=== PATIENT | male | born 1980 | race African-American/Black ===

== ENCOUNTER 2019-02-16 13:39 | Day surgery (SDC) | payer OTHER ==
[2019-02-16 13:50] VITALS: BMI 24.3
--- NOTE | 2019-02-16 13:51 | PDOC ---
Rapid Medical Evaluation Time Seen by Provider: 02/16/19 13:46 Medical Evaluation: 02/16/19 13:47 I have briefly examined the patient The patient presents to the ER for RLQ pain. States he had all over pain yesterday and was evaluated at urgent care. He states that urgent care he went to yesterday called him because he had a high WBC. They told him to come to the nearest ED to r/o appendicitis. Hx of smoking marijuana Exam: TTP of the RLQ/flank. NAD Orders: Labs, urine, IV, NPO Pt to proceed to the ED for further evaluation Discharge Disposition - Diagnosis Abdominal pain Qualifiers: Abdominal location: right lower quadrant Qualified Code(s): R10.31 - Right lower quadrant pain - Referrals - Patient Instructions - Post Discharge Activity
[2019-02-16] MEDS ORDERED: morphine CARPU-JECT 4 MG/1 ML DISP.SYRIN IVPUSH ONE (14:49)
[2019-02-16 14:59] LABS: BASO % 0.9 % (0-2.0); EOS % 0.7 % (0-4.5); HEMATOCRIT 46.8 % (35.4-49); HEMOGLOBIN 15.1 GM/dL (11.7-16.9); LYMPH % 23.2 % (8-40); MCH 28.9 pg (25.7-33.7); MCHC 32.3 g/dl (32.0-35.9); MEAN CELL VOLUME 89.4 fl (80-96); MEAN PLT VOLUME 9.4 fl (7.5-11.1); MONO % 9.6 % (3.8-10.2); NEUT % 65.6 % (42.8-82.8); PLATELET COUNT 214 K/MM3 (134-434); RBC 5.23 M/mm3 (4.00-5.60); RDW 12.6 % (11.9-15.9); WHITE BLOOD COUNT 11.3 K/mm3 (4.0-10.0)
[2019-02-16 15:08] LABS: INR 1.23 (0.83-1.09); PROTHROMBIN TIME (PATIENT) 14.6 SEC (9.7-13.0)
[2019-02-16] MEDS ORDERED: morphine SULFATE 4 MG/ML VIAL ONE (15:08)
[2019-02-16 15:28] LABS: ALBUMIN 4.3 g/dl (3.4-5.0); ALK PHOS 94 U/L (45-117); ANION GAP 7 MMOL/L (8-16); BILIRUBIN,TOTAL 0.9 mg/dL (0.2-1); BLOOD UREA NITROGEN 12 mg/dL (7-18); CALCIUM 9.3 mg/dL (8.5-10.1); CHLORIDE 103 mmol/L (98-107); CO2 28 mmol/L (21-32); CREATININE 1.2 mg/dL (0.55-1.3); GLUCOSE,RANDOM 126 mg/dL (74-106); POTASSIUM 3.8 mmol/L (3.5-5.1); SGOT/AST 19 U/L (15-37); SGPT/ALT 33 U/L (13-61); SODIUM 137 mmol/L (136-145); TOT PROT 8.2 g/dl (6.4-8.2)
--- NOTE | 2019-02-16 15:31 | PDOC ---
History of Present Illness - General Chief Complaint: Pain Stated Complaint: ABNORMAL BLOOD WORK Time Seen by Provider: 02/16/19 13:46 History Source: Patient Exam Limitations: No Limitations Past History - Past Medical History Allergies/Adverse Reactions: Allergies Allergy/AdvReac Type Severity Reaction Status Date / Time No Known Allergies Allergy Verified 02/16/19 13:47 Home Medications: Ambulatory Orders NK [No Known Home Medication] 02/16/19 COPD: No - Suicide/Smoking/Psychosocial Hx Smoking History: Never smoked Drug/Substance Use Hx: Yes ([facility]) *Physical Exam - Vital Signs Last Vital Signs Temp Pulse Resp BP Pulse Ox 98.4 F 98 H 18 123/73 98 02/16/19 13:47 02/16/19 13:47 02/16/19 13:47 02/16/19 13:47 02/16/19 13:47 - Physical Exam General Appearance: No: Apparent Distress Respiratory/Chest: positive: Lungs Clear, Normal Breath Sounds. negative: Respiratory Distress Cardiovascular: positive: Regular Rhythm, Regular Rate, S1, S2. negative: Murmur Gastrointestinal/Abdominal: positive: Tender (RLQ), Soft. negative: Distended, Guarding, Rebound Musculoskeletal: negative: CVA Tenderness Integumentary: positive: Normal Color Neurologic: positive: Alert, Normal Mood/Affect ED Treatment Course - LABORATORY CBC & Chemistry Diagram: 02/16/19 14:28 02/16/19 14:28 - ADDITIONAL ORDERS Additional order review: Laboratory Results 02/16/19 14:28 PT with INR 14.60 H INR 1.23 H 02/16/19 14:28 RBC 5.23 MCV 89.4 MCHC 32.3 RDW 12.6 MPV 9.4 Neutrophils % 65.6 Lymphocytes % 23.2 Monocytes % 9.6 Eosinophils % 0.7 Basophils % 0.9 - Medications Given in the ED: ED Medications Discontinued Medications Generic Name Dose Route Start Last Admin Trade Name Freq PRN Reason Stop Dose Admin Morphine Sulfate 4 mg 02/16/19 14:49 02/16/19 15:19 Morphine Injection - IVPUSH 02/16/19 14:50 4 mg ONCE ONE Administration Medical Decision Making - Medical Decision Making 38 y/o M with no sig pmh, no prior surgeries presents with RLQ abd pain x 1 week , worse the past 2 days, along with mild nausea. Went to yesterday to get evaluated and had labwork done, which resulted today showing leukocytosis. Patient was advised to come to ED for possible appendicitis. Denies fever, sob, cp, vomiting, diarrhea, urinary complaints. Smokes marijuana; denies other drug use. Denies smoking. Drinks alcohol socially R/O appendicitis Plan: Labs, pain control, CT A/P, NPO 02/16/19 15:28 CT A/P shows acute appendicitis; no abscess or phlegmon seen Patient given dose of Cefoxitin D/W Dr. Guerra and patient to be admitted under his service 02/16/19 18:40 *DC/Admit/Observation/Transfer Diagnosis at time of Disposition: Appendicitis Qualifiers: Appendicitis type: acute appendicitis Acute appendicitis type: unspecified acute appendicitis type Qualified Code(s): K35.80 - Unspecified acute appendicitis - Discharge Dispostion Condition at time of disposition: Stable Decision to Admit order: Yes - Referrals - Patient Instructions - Post Discharge Activity
[2019-02-16 15:46] LABS: URINE APPEARANCE CLEAR; URINE BILIRUBIN 1+ (NEGATIVE); URINE CASTS 8 /lpf (0-8); URINE COLOR DK YELLOW; URINE GLUCOSE (UA) NEGATIVE (NEGATIVE); URINE KETONE TRACE (NEGATIVE); URINE LEUK ESTERASE TRACE (NEGATIVE); URINE NITRITE POSITIVE (NEGATIVE); URINE PROTEIN 1+ (NEGATIVE); URINE RBC 1 /hpf (0-4); URINE WBC 1 /hpf (0-5)
[2019-02-16] MEDS ORDERED: SODIUM CHLORIDE 1,000 ML IV STA (18:18)
[2019-02-16] MEDS ORDERED: CEFOXITIN SODIUM 2 GM in DEXTROSE 5%-WATER - 100 ML IVPB ONE (18:23)
[2019-02-16] MEDS ORDERED: ONDANSETRON 4 MG/2 ML VIAL IVPUSH PRN (18:41)
[2019-02-16] MEDS ORDERED: morphine SULFATE 4 MG/ML VIAL IVPUSH PRN (18:41)
[2019-02-16] MEDS ORDERED: LACTATED RINGERS SOLUTION 1,000 ML/1,000 ML INFUS.BAG IV SCH (18:45)
[2019-02-16] MEDS ORDERED: LACTATED RINGERS SOLUTION 1,000 ML IV SCH (18:45)
--- NOTE | 2019-02-16 21:55 | HP ---
Admitting History and Physical - Admission Chief Complaint: abdominal pain History of Present Illness: 38 y/o M with no sig pmh, no prior surgeries presents with RLQ abd pain x 1 week , worse the past 2 days, along with mild nausea. Went to yesterday to get evaluated and had labwork done, which resulted today showing leukocytosis. Patient was advised to come to ED for possible appendicitis. Denies fever, sob, cp, vomiting, diarrhea, urinary complaints. Smokes marijuana; denies other drug use. Denies smoking. Drinks alcohol socially, we were called to assess. History Source: Patient, Medical Record Limitations to Obtaining History: No Limitations - Smoking History Smoking history: Never smoked - Alcohol/Substance Use Hx Alcohol Use: Yes History of Substance Use: reports: Marijuana - Social History Usual Living Arrangement: Yes: Alone ADL: Independent History of Recent Travel: No Home Medications - Allergies Allergies/Adverse Reactions: Allergies Allergy/AdvReac Type Severity Reaction Status Date / Time No Known Allergies Allergy Verified 02/16/19 13:47 - Home Medications Home Medications: Ambulatory Orders Amox-Tr/K Cl [Augmentin - 875Mg Tablet] 1 tab PO BID #14 tablet 02/17/19 Oxycodone HCl/Acetaminophen [Percocet 5/325 -] 1 tab PO Q6H #40 tab MDD 5 Review of Systems - Review of Systems Constitutional: denies: Chills, Fever Eyes: denies: Blind Spots, Blurred Vision HENT: denies: Difficult Swallowing, Throat Pain Neck: denies: Decreased ROM, Lumps, Pain on Movement Cardiovascular: denies: Chest Pain, Palpitations Respiratory: denies: Cough, SOB Gastrointestinal: reports: Abdominal Pain, Nausea. denies: Bloating, Constipation, Diarrhea, Vomiting Genitourinary: denies: Discharge, Dysuria Breasts: reports: No Symptoms Reported. denies: Pain Musculoskeletal: denies: Back Pain, Crepitus, Muscle Pain Integumentary: denies: Bruising, Lesions, Lump Neurological: denies: Seizure, Syncope Endocrine: denies: Unexplained Weight Gain, Unexplained Weight Loss Hematology/Lymphatic: denies: Easily Bruised, Excessive Bleeding Psychiatric: denies: Anxiety, Depression Physical Examination Vital Signs: Vital Signs Temperature 97.9 F 02/16/19 19:31 Pulse Rate 67 05/14/19 19:31 Respiratory Rate 18 02/16/19 19:31 Blood Pressure 125/77 02/16/19 19:31 O2 Sat by Pulse Oximetry (%) 98 02/16/19 19:33 Vital Signs Period Temp Pulse Resp BP Sys/Medrano Pulse Ox Last 24 Hr 97.9 F-98.4 F 67-98 18-20 116-138/58-85 98-99 Constitutional: Yes: Well Nourished, No Distress, Calm Eyes: Yes: WNL, Conjunctiva Clear, EOM Intact HENT: Yes: Atraumatic, Normocephalic Neck: Yes: Supple, Trachea Midline Cardiovascular: Yes: Regular Rate and Rhythm, S1, S2 Respiratory: Yes: Regular, CTA Bilaterally Gastrointestinal: Yes: Normal Bowel Sounds, Soft ...Rectal Exam: Yes: Deferred Renal/: No: CVA Tenderness - Left, CVA Tenderness - Right Breast(s): No: Breast Implants, Nipple Inversion Musculoskeletal: No: Muscle Pain, Muscle Weakness Extremities: No: Cool, Cyanosis Edema: No Peripheral Pulses WNL: Yes Peripheral Pulses: Left Radial: 2+, Right Radial: 2+, Left Doralis Pedis: 2+, Right Dorsalis Pedis: 2+, Left Femoral: 2+, Right Femoral: 2+ Integumentary: No: Jaundice, Rash, Skin Tear Neurological: Yes: Alert, Oriented Psychiatric: Yes: Alert, Oriented Labs: CBC, BMP 02/16/19 14:28 02/16/19 14:28 Imaging - Results Cat Scan: Report Reviewed, Image Reviewed (appendicitis) Problem List - Problems (1) Appendicitis Assessment/Plan: 38yo male with appendicitis with localized peritonitis, RLQ tenderness and elevated WBC NPO and IVF hydration IV antibiotics Discussed with patient risks, benefits and alternatives of laparoscopic possible open appendectomy, including but not limited to bleeding, infection, injury to adjacent structures, leak or injury, intraabdominal abscess, incisional hernia, need for further procedures, ; alternatives include antibiotics, delayed or no surgery - risks of this include failure of nonoperative therapy, perforation, sepsis, recurrence, . Patient desires to proceed with operation - will take to OR for above. Informed consent signed for same. Code(s): K37 - UNSPECIFIED APPENDICITIS Qualifiers: Appendicitis type: acute appendicitis Acute appendicitis type: with localized peritonitis Appendicitis perforation presence: without perforation Appendicitis abscess presence: without abscess Qualified Code(s): K35.80 - Unspecified acute appendicitis (2) Abdominal pain in male Code(s): R10.9 - UNSPECIFIED ABDOMINAL PAIN (3) Leukocytosis Code(s): D72.829 - ELEVATED WHITE BLOOD CELL COUNT, UNSPECIFIED Qualifiers: Leukocytosis type: bandemia Qualified Code(s): D72.825 - Bandemia (4) RLQ abdominal tenderness Code(s): R10.813 - RIGHT LOWER QUADRANT ABDOMINAL TENDERNESS Qualifiers: Presence of rebound: present Qualified Code(s): R10.823 - Right lower quadrant rebound abdominal tenderness
[2019-02-17] MEDS ORDERED: CEFOXITIN SODIUM 1 GM in DEXTROSE 5%-WATER - 100 ML IVPB SCH ×2 (02:00→10:00)
[2019-02-17] MEDS: CEFOXITIN SODIUM 1 GM in DEXTROSE 5%-WATER - 100 ML IVPB SCH ×2 (02:09→07:16)
[2019-02-17] MEDS ORDERED: DEXTROSE IVPB SCH (02:15)
[2019-02-17] MEDS ORDERED: CEFOXITIN IVPB SCH (02:15)
[2019-02-17 06:56] LABS: BASO % 0.3 % (0-2.0); HEMATOCRIT 41.3 % (35.4-49); HEMOGLOBIN 13.8 GM/dL (11.7-16.9); LYMPH % 30.2 % (8-40); MCH 29.6 pg (25.7-33.7); MCHC 33.3 g/dl (32.0-35.9); MEAN PLT VOLUME 9.1 fl (7.5-11.1); MONO % 10.9 % (3.8-10.2); NEUT % 56.6 % (42.8-82.8); PLATELET COUNT 202 K/MM3 (134-434); RBC 4.65 M/mm3 (4.00-5.60); RDW 12.4 % (11.9-15.9); WHITE BLOOD COUNT 7.9 K/mm3 (4.0-10.0)
[2019-02-17] MEDS ORDERED: BUPIVACAINE HCL/PF 0.5% (5MG/ML) 10 ML VIAL ONE (08:05)
[2019-02-17] MEDS ORDERED: ROCURONIUM BROMIDE 50 MG/5 ML VIAL ONE ×6 (08:16→08:19)
[2019-02-17] MEDS ORDERED: MIDAZOLAM HCL 2 MG/2 ML SINGLE DOSE VIAL ONE (08:16)
[2019-02-17] MEDS ORDERED: LIDOCAINE HCL/PF 2% SDV 5ML VIAL ONE (08:16)
[2019-02-17] MEDS ORDERED: PROPOFOL 20 ML ONE ×2 (08:16)
[2019-02-17] MEDS ORDERED: ceFAZolin SODIUM 1 GM VIAL ONE (08:25)
[2019-02-17] MEDS ORDERED: ceFAZolin SODIUM 1 GM VIAL IVPB ONE (08:30)
[2019-02-17] MEDS ORDERED: DEXAMETHASONE SOD PHOSPHATE 4 MG/1 ML VIAL ONE (08:41)
[2019-02-17] MEDS ORDERED: GLYCOPYRROLATE 0.2 MG/1 ML VIAL ONE ×2 (08:52→08:53)
[2019-02-17] MEDS ORDERED: NEOSTIGMINE METHYLSULFATE 0.5 MG/ML - 10 ML MDV ONE (08:52)
[2019-02-17] MEDS ORDERED: BUPIVACAINE HCL/PF 0.5% (5MG/ML) 10 ML VIAL IJ ONE (08:57)
[2019-02-17] MEDS: IBUPROFEN 800 MG/8 ML IJ IVPB PRN ×2 (09:00→09:30)
--- NOTE | 2019-02-17 09:18 | OP ---
Operative Note - Note: Operative Date: 02/17/19 Pre-Operative Diagnosis: appendicitis Operation: laparoscopic appendectomy Findings: inflammed appendix, purulent exudate Post-Operative Diagnosis: Same as Pre-op Surgeon: Shahzad Guerra Anesthesiologist/MANAGER ENGINE: Karissa Arriola Anesthesia: General, Local (maricaine 0.5% 10 ml) Estimated Blood Loss (mls): 2 Drains, Volume Out (mls): 50 (UOP) Fluid Volume Replaced (mls): 500 (crystalloid ) Operative Report Dictated: Yes
--- NOTE | 2019-02-17 09:19 | DS ---
Physical Examination Vital Signs: Vital Signs Temperature 98.4 F 02/17/19 06:10 Pulse Rate 70 02/17/19 06:10 Respiratory Rate 20 02/17/19 06:10 Blood Pressure 116/58 L 02/17/19 06:10 O2 Sat by Pulse Oximetry (%) 98 02/17/19 03:00 Vital Signs Period Temp Pulse Resp BP Sys/Medrano Pulse Ox Last 24 Hr 97.9 F-98.4 F 58-98 14-20 110-138/56-85 95-99 Findings/Remarks: stable post operatively. tolrating diet and stable for discharge home. Constitutional: Yes: Well Nourished, No Distress, Calm Eyes: Yes: Conjunctiva Clear, EOM Intact HENT: Yes: Atraumatic, Normocephalic Neck: Yes: Supple, Trachea Midline Cardiovascular: Yes: Regular Rate and Rhythm, S1, S2 Respiratory: Yes: Regular, CTA Bilaterally Gastrointestinal: Yes: Normal Bowel Sounds, Soft ...Rectal Exam: Yes: Deferred Renal/: No: CVA Tenderness - Left, CVA Tenderness - Right Musculoskeletal: No: Muscle Pain, Muscle Weakness Extremities: No: Cool, Cyanosis Edema: No Peripheral Pulses WNL: Yes Peripheral Pulses: Left Radial: 2+, Right Radial: 2+, Left Doralis Pedis: 2+, Right Dorsalis Pedis: 2+, Left Femoral: 2+, Right Femoral: 2+ Integumentary: Yes: Incision. No: Jaundice, Rash Wound/Incision: Yes: Clean/Dry, Well Approximated, Dressing Dry and Intact Neurological: Yes: Alert, Oriented Psychiatric: Yes: Alert, Oriented Labs: CBC, BMP 02/17/19 06:00 02/16/19 14:28 Discharge Summary Reason For Visit: APPENDICITIS Current Active Problems Abdominal pain in male (Acute) Appendicitis (Acute) Leukocytosis (Acute) RLQ abdominal tenderness (Acute) Procedures: Principal: laparoscopic appendectomy Hospital Course: admitted for an emergency ambulatory procedure. Uneventful procedure. stable for discharge home. Condition: Good - Instructions Diet, Activity, Other Instructions: Postoperative instructions: You had a laparoscopic ectomy on 02/17/[address] Shahzad Guerra of [facility]. Activity: Resume your usual activities gradually, but no heavy exertion or lifting more than 10-15 pounds for 1 month. Remove dressings 48 hours after surgery; sticky tapes underneath will fall off by themselves. You may shower daily starting then, just pat the incision areas dry. No bath or swimming until skin incisions have healed. Eat lightly at first, but advance to your usual diet as tolerated. Pain: For pain, you may use and alternate Tylenol (acetaminophen) 1-2 pills and/ or ibuprofen 200 mg (1-3 pills) every 6 hours each as needed; this means that you can take one OR the other at 3-hour intervals. If you are prescribed a Tylenol/narcotic combination for severe pain, use it instead of plain Tylenol as needed and switch back when your pain starts decreasing. Do not take more than 4000mg of acetaminophen in a day. Take medications as prescribed or indicated on the labeling. Follow-up: Call Dr. Guerra' office at [phone] to make your postop appointment (Friday in approximately 2 weeks after surgery). Clinic is held in the [facility] on the first floor of [facility]. Call the office if you have: * increasing pain not responsive to pain medication * fever of 101F or higher * vomiting * unusual or increasing bleeding or drainage from wounds * increasing redness or swelling at wound sites * inability to urinate Also, see your primary medical doctor within 1-2 weeks. Disposition: HOME - Home Medications Comprehensive Discharge Medication List: Ambulatory Orders Amox-Tr/K Cl [Augmentin - 875Mg Tablet] 1 tab PO BID #14 tablet 02/17/19 Oxycodone HCl/Acetaminophen [Percocet 5/325 -] 1 tab PO Q6H #40 tab MDD 5
[2019-02-17] MEDS ORDERED: ONDANSETRON 4 MG/2 ML VIAL IVPUSH PRN (09:44)
[2019-02-17] MEDS ORDERED: morphine SULFATE 4 MG/ML VIAL IVPUSH PRN (09:44)
[2019-02-17] MEDS ORDERED: LACTATED RINGERS SOLUTION 1,000 ML IV SCH (09:44)
[2019-02-17] MEDS ORDERED: CEFOXITIN SODIUM 1 GM in DEXTROSE 5%-WATER 100 ML IVPB SCH (10:00)
[2019-02-17 10:45] VITALS: BP 116/67; PULSE 73; TEMP 98.3
--- NOTE | 2019-02-17 14:50 | OP ---
DATE OF OPERATION: 02/17/2019 PREOPERATIVE DIAGNOSIS: Acute appendicitis with localized peritonitis. POSTOPERATIVE DIAGNOSIS: Acute appendicitis with localized peritonitis. PROCEDURE: Laparoscopic appendectomy. ATTENDING SURGEON: Shahzad Guerra MD. COSMETIC SURGEON: None. ANESTHESIOLOGIST: Karissa Arriola MD. ANESTHESIA TYPE: General with local. Local consisted of 0.5% Marcaine as well as 10 mL. ESTIMATED BLOOD LOSS: 2 mL. SPECIMEN: Appendix. IV FLUID ADMINISTERED: 500 mL. ESTIMATED BLOOD LOSS: 2 mL. DRAINS: 50 mL of urine output. FINDINGS: The patient had an inflamed appendix with purulent exudate which was removed from its base at the cecum. INDICATION: The patient is a 38-year-old male presenting with a history of 4 days of right lower quadrant abdominal pain worsening and persistent associated with some nausea and no vomiting. He had mild leukocytosis and a mild fever. A CAT scan confirmed the presence of acute appendicitis. He was counseled regarding the risks, benefits and alternatives of open versus laparoscopic appendectomy, signed informed consent, and was taken for the procedure. PROCEDURE: The patient was brought to the operating room. He was placed in the supine position on the operating table. The anterior abdominal wall was shaved, prepped and draped in standard surgical fashion over the lower abdomen and below the umbilicus. For planned Socorro entry, the skin was marked along with the port entries in the suprapubic position and the left lower quadrant. After a formal timeout was completed identifying the operative site and procedure, we began first with a Socorro entry into the infraumbilical space. A Jones had been placed preoperatively as well as SCDs. He received intravenous antibiotics prior as well. The skin was incised with a 15-blade scalpel and it was deepened and widened through subcutaneous tissue. Care was taken to dissect down the anterior fascia in the infraumbilical position. A clamp was used for blunt entry into the abdomen after the Kochers were used to elevate the midline fascia. After entry into the abdomen, 0 Vicryl was laid in a [id number] to ablate the Socorro entry port. After completing this, Socorro port, 12 mm, was instilled into the abdomen and pneumoperitoneum was established to 15 mmHg at which point I began first with inserting the laparoscope and inspecting the entry site which was atraumatic. We then began with additional port placement in the suprapubic position in the left lower quadrant at the anterior superior iliac spine one-third medial. We began then with inspection of the cecum which appeared to have an inflamed appendix at the base. A space was created at the base of the appendix for stapler placement. After the midbody of the appendix was controlled and the base, an EndoGIA size 45-mm purple load was used to transect the base of the appendix. After the appendix base was dissected, a LigaSure device was then used to take the mesoappendix and seal it along its length. It was then dissected from the lateral wall of the cecum and retrieved from the abdomen using a 10-mm EndoCatch bag. With the appendix removed, the site of the dissection was inspected and it appeared adequate. Some purulent exudate was also debrided; a small amount of the purulent discharge was suctioned. We then relieved the pneumoperitoneum and the port sites were closed by tying the 0 Vicryl at the umbilical port site and then the remaining closing the skin with 4-0 Vicryl in a subcuticular fashion in the two 5-mm port sites in a subcuticular fashion and the infraumbilical position as well. The skin was cleaned. Sterile dressings were placed. The patient was awoken from general anesthesia having tolerated the procedure well. He was given Marcaine 0.5% 10 mL at the port sites. All instrument and counts were correct. MD JACQUELIN Harris/[id number]
--- NOTE | 2019-02-19 10:41 | PATH ---
Surgical Pathology Report Patient Name: MIRTA ENG [facility]. Rec. #: [id number] /Age/Gender: 1980 (Age: 38) / M Account: [id number] Location: AMBULATORY SURG Taken: 02/17/2019 Received: 02/17/2019 Reported: 02/19/2019 Physicians: PHYSICIAN EMERGENCY DEPT Specimen(s) Received APPENDIX Clinical History Appendicitis Final Diagnosis APPENDIX, APPENDECTOMY: ACUTE APPENDICITIS. Electronically Signed Karina Rob M.D. Gross Description Received in formalin, labeled "appendix" is a 5.8 cm long appendix with a diameter up to 0.5 cm. Dao are present at the resection margin. The serosal aspect appears smooth and shiny. No disruptions/perforations are identified. On sectioning, the lumen is filled with soft hemorrhagic material. Rooming House Inspector sections are submitted in one cassette. AE/02/17/2019 ebram/02/17/2019
== END 2019-02-17 15:17 | disposition home or self-care (01) ==
LOC: JER 13:39 → JASUSAT 18:41 → J8W 20:15 → JASUSAT 02-17 15:17
PROC: 0DTJ4ZZ Resection of Appendix, Percutaneous Endoscopic Approach (ICD-10-PCS; principal; 2019-02-16)
DX: K35.33 Acute appendicitis with perforation, localized peritonitis, and gangrene, with abscess (principal)
CPT/HCPCS: 36415; 74177-TC; 80053; 81003; 82550; 82553; 84484; 85025; 85027; 85610; 85730; 86850; 86900; 86901; 87086; 88304-TC; 94010; 94760; 99285-25